=== PATIENT | male | born 1995 | race African-American/Black ===

== ENCOUNTER 2017-10-31 10:49 | Emergency (ER) | payer OTHER, MEDICAID ==
[~2017-10-31] VITALS: Ht 185.4 cm; Wt 84.1 kg
[~2017-10-31 10:49] MED LIST: ACET-66 PO; IBUP-675 PO
[2017-10-31 13:00] VITALS: BP 120/77
== END 2017-10-31 13:53 | disposition home or self-care (01) ==
LOC: EMS 10:50
DX: S11.91XA Laceration without foreign body of unspecified part of neck, initial encounter (principal); S01.312A Laceration without foreign body of left ear, initial encounter; W22.8XXA Striking against or struck by other objects, initial encounter; Y93.89 Activity, other specified; Y92.89 Other specified places as the place of occurrence of the external cause; Y99.8 Other external cause status
CPT/HCPCS: 99283